=== PATIENT | male | born 1955 | race Caucasian/White ===

== ENCOUNTER 2023-12-20 19:32 | Emergency (ER) | payer MEDICARE, SELFPAY ==
[2023-12-20 19:34] VITALS: BP 96/48
[2023-12-20] MEDS: TORADOL 30 MG IM (20:28)
--- NOTE | 2023-12-20 20:47 | ED.MUSCINJ ---
HPI-Injury
General
Chief Complaint: Musculo-Skeletal Complaint
Source: patient
Exam Limitations: none
Time Seen by Provider: 12/20/23 20:00
History of Present Illness-Injury
Initial Injury comments:
68-year-old male presents complaining of left knee pain. He states he was pushing a stroller and inadvertently stepped into a deep hole with his left foot. Said the whole went up to his mid thigh. He twisted his knee awkwardly and the whole. He
noted swelling to the knee. No issues with the knee prior to injury. No other complaints at this time
Past History
Past History
ED Past Medical History: None
ED Past Surgical History: None
Social History
Tobacco: Non-smoker
Alcohol: None
Personal:
Living: with family
Employment: Employed
Phy Exam
Physical Exam
Physical Exam:
General: Well appearing male NAD
MSK: Left knee with soft tissue swelling. Tender anteriolateral aspect of knee. No deformity. Able to straight leg raise. There is an effusion noted
Skin: Intact without laceration
Injury Course
Orders/Labs/Results
Orders:
Orders
12/20/23 20:20
Ketorolac [Toradol] 30 mg IM NOW STA
12/20/23 20:21
CR Knee - Left 4 Or More View* Urgent
Comment:
Reason For Exam: fall
12/20/23 21:28
Oxycodone/Acetaminophen [Percocet 5/325] 2 tablet PO NOW STA
12/20/23 21:29
Crutches-Treatment ONCE
Knee Immobilizer Left-Treatmen ONCE
MDM/Problems Addressed
Differential Diagnosis Includes:
Left knee pain after stepping in a hole. Consider fracture versus dislocation versus sprain
I personally visualized x-rays of the left knee which demonstrate a depressed lateral tibial plateau fracture.
Discussed findings with orthopedics, Dr. Sam who recommended knee immobilizer crutches nonweightbearing and follow-up as an outpatient. He was prescribed for his pain.
ED Attending Note
-
Portions of this chart may have been created with voice recognition software.� Occasional wrong word or��sound alike� substitutions may have occurred due to the inherent limitations of voice recognition software.
Discharge Plan
Departure
Patient Disposition: Home (Routine Discharge)
Date of Disposition: 12/20/23
Time of Disposition: 21:31
Patient with high blood pressure during this ER visit?: No
Discharge Problem:
Closed fracture of tibial plateau
Instructions: Knee Immobilizer (DC), Muscle and Bone Pain (DC)
Prescriptions:
New
oxycodone-acetaminophen [Percocet] 5-325 mg tablet
1 tab PO TID PRN (Reason: Pain) Qty: 10 0RF
No Action
apixaban [Eliquis] 5 MG tablet
5 mg PO BID Qty: 42 0RF
Rx Instructions:
Take 10mg twice a day for one week. Then take 5mg twice a day after.
Referrals:
Katelyn Sam I., DO [Active] -
Activity Restrictions/Additional Instructions:
Do not bear weight on left leg. Use knee immobilizer and crutches when ambulating. Elevate for swelling. Use pain medicine if needed for severe pain follow-up with orthopedics for next available appointment. Please return here for increased pain
swelling numbness or other concerning finding
Interventions
Interventions:
*Risk Screen - Suicide Last Done: 12/20/23 19:34
*General Assessment Last Done: 12/20/23 19:34
*Neglect/Abuse Screening Last Done: 12/20/23 19:34
ED- Fall Risk Assessment Last Done: 12/20/23 20:43
*ED COVID-19 Vaccine History Last Done: 12/20/23 20:43
ED-Musculoskeletal Assessment Last Done: 12/20/23 20:43
Discharge Date and Time
Print Language: UPPER SORBIAN
[2023-12-20] MEDS: PERCOCET 5/325 2 TABLET PO (22:15)
[2023-12-20 22:47] VITALS: BP 101/52
== END 2023-12-20 22:49 | disposition home or self-care (01) ==
LOC: EMR 19:32
PROVIDERS: EMERGENCY PHYSICIAN Emergency Medicine; FAMILY PHYSICIAN Internal Medicine
DX: M25.562 Pain in left knee (principal); S82.145A Nondisplaced bicondylar fracture of left tibia, initial encounter for closed fracture; W19.XXXA Unspecified fall, initial encounter
CPT/HCPCS: 99283; 96372; 73564

== ENCOUNTER → 2023-12-24 14:15 | Outpatient (REF) | payer MEDICARE, BC, SELFPAY | LOC: HWRAD 14:15 | PROVIDERS: ATTENDING PHYSICIAN Physician Assistant Surgical; FAMILY PHYSICIAN Internal Medicine | DX: S82.142A Displaced bicondylar fracture of left tibia, initial encounter for closed fracture (principal) | CPT/HCPCS: 73700 ==

== ENCOUNTER → 2024-12-15 14:44 | Outpatient (REF) | payer MEDICARE, BC, SELFPAY | LOC: HWRAD 14:44 | PROVIDERS: ATTENDING PHYSICIAN Internal Medicine | DX: R22.42 Localized swelling, mass and lump, left lower limb (principal) | CPT/HCPCS: 76882 ==

== ENCOUNTER → 2024-12-25 14:01 | Outpatient (REF) | payer MEDICARE, BC, SELFPAY ==
[2024-12-25 14:11] VITALS: BP 153/82; BP_SYST 64
[2024-12-25 15:15] VITALS: BP 153/82
== END ==
LOC: RADI 14:01
PROVIDERS: ATTENDING PHYSICIAN Internal Medicine; FAMILY PHYSICIAN Internal Medicine
DX: D36.13 Benign neoplasm of peripheral nerves and autonomic nervous system of lower limb, including hip (principal)
CPT/HCPCS: 20206; 76942; 88305; 88333; 88341; 88342